=== PATIENT | female | born 1970 | race African-American/Black ===

== ENCOUNTER → 2019-03-19 | Outpatient (CLI) | payer OTHER ==
--- NOTE | 2019-03-20 02:35 | MR ---
EXAMINATION TYPE: MR shoulder LT wo con DATE OF EXAM: 03/19/2019 COMPARISON: None HISTORY: Left shoulder pain and burning, decreased range of motion TECHNIQUE: Multiplanar, multisequence imaging of the left shoulder is performed without contrast. FINDINGS: The subscapularis tendon is intact. Biceps tendon is intact. There is small amount of fluid around th e biceps tendon. There is minimal shoulder joint effusion. Glenoid mickey appear intact. Supraspinatus tendon is intact. The AC joint is intact. There is no significant subacromial impingeme nt. I see no bony destructive process. IMPRESSION: No evidence of rotator cuff tear. Mild shoulder joint effusion consistent with synovitis.
== END | disposition home or self-care (01) ==
LOC: RADMRIMAIN 21:53
PROVIDERS: ATTEND Emergency Medicine
DX: M25.412 Effusion, left shoulder (principal); M65.812 Other synovitis and tenosynovitis, left shoulder